=== PATIENT | female | born 1935 | race Caucasian/White ===

== ENCOUNTER 2020-12-17 11:06 | Outpatient (REF) | payer MEDICARE, SELFPAY ==
[2020-12-17 14:00] LABS: MANUAL DIFF FLAG NO
[2020-12-17 14:06] LABS: Basophils Percent Auto 0.4 % (0-2); Eosinophils Absolute Auto 0.1 X10*3/uL (0.0-0.4); Hematocrit 42.3 % (37-47); Hemoglobin 13.7 g/dl (12.0-16.0); Imm Gran Abs Auto 0.02 X10*3/uL (0.00-0.03); Imm Gran Pct Auto 0.4 % (0.0-0.4); Lymphocytes Absolute Auto 1.1 X10*3/uL (1.2-4.9); Lymphocytes Percent Auto 21.6 % (20-40); Mean Corpuscular HGB Conc 32.4 g/dl (31.0-35.0); Mean Corpuscular Hemoglobin 30.9 pg (27.0-33.0); Mean Corpuscular Volume 95.5 fL (80-98); Mean Platelet Volume 11.9 fL (9.4-12.3); Monocytes Absolute Auto 0.5 X10*3/uL (0.1-1.2); Monocytes Percent Auto 8.9 % (2-11); Neutrophils Absolute Auto 3.5 X10*3/uL (2.0-8.3); Neutrophils Percent Auto 67.7 % (45-73); Platelet Count 240 X10*3/uL (160-400); Red Blood Count 4.43 X10*6/uL (4.20-5.50); Red Cell Distribution Width 13.5 % (11.0-16.0); White Blood Count 5.2 X10*3/uL (4.8-10.8)
[2020-12-17 14:23] LABS: Alanine Aminotransferase 17 U/L (0-31); Alkaline Phosphatase 76 U/L (39-117); Anion Gap 17 (12-20); Aspartate Amino Transferase 21 U/L (5-31); Bilirubin Total 0.6 mg/dL (0.0-1.0); Blood Urea Nitrogen 18 mg/dL (9-16); Calcium 10.2 mg/dL (8.4-10.2); Carbon Dioxide 22 mmol/L (22-29); Chloride 102 mmol/L (96-108); Cholesterol 155 mg/dL; Estimated Average Glucose 157 mg/dL; Estimated Glomerular Filt Rate 57; Glucose Fasting 205 mg/dL (60-99); HDL Cholesterol 53 mg/dL; Hemoglobin A1c % 7.1 %; LDL Cholesterol Calculated 82 mg/dl; Potassium 4.5 mmol/L (3.3-5.1); Sodium 136 mmol/L (135-145); Total Protein 6.6 g/dL (6.5-8.0); Triglycerides 104 mg/dL
[2020-12-17 14:42] LABS: Uric Acid 4.8 mg/dL (2.4-5.7)
[2020-12-17 14:49] LABS: Vitamin B12 450 pg/mL (200-900)
[2020-12-17 14:50] LABS: Creatinine Urine 184.02 mg/dL; Microalbum/Creatinine Ratio Ur 21.1 ug/mg cr
== END 2020-12-17 11:07 | disposition home or self-care (01) ==
LOC: HO.10HDL 11:06
PROVIDERS: Visit Provider Internal Medicine
DX: Z00.00 Encounter for general adult medical examination without abnormal findings (principal); E11.9 Type 2 diabetes mellitus without complications; E78.00 Pure hypercholesterolemia, unspecified; I10 Essential (primary) hypertension; M10.9 Gout, unspecified
CPT/HCPCS: 36415; 80053; 80061; 82043; 82607; 83036; 84550; 85025

== ENCOUNTER 2021-08-22 07:47 | Outpatient (REF) | payer MEDICARE, SELFPAY ==
--- NOTE | 2021-08-25 13:56 | MHC.AU.ANO ---
Adult Audiological Evaluation Date of Visit: 08/22/21 Hotel Operation Manager Used: Not Applicable Reason for Appointment: Audiologic evaluation due to sudden onset of bilateral tinnitus. Yolanda reports the ear noises sound like bees buzzing and she notices it mostly at night when trying to sleep or in a quiet environment. She does not report a change in hearing. Does patient feel they have a hearing loss?: No Has hearing been tested previously?: No Hearing Handicap Inventory: HHIE SCORE: 0 Based on HHIE score, patient has: No perceived hearing handicap Ear History: Bothersome Tinnitus/Ringing/Noises in Ears: Both Ears Ear used on the phone: Left Ear History of occupational noise exposure?: No History: No Medical History: Medical History: Diabetes, High Blood Pressure Medication List: Metformin, Famotidine, Glipizide, Meloxicam, Losartan/HCTZ, Tylenol, Calcium Otoscopy: Right Ear: Mostly occluding cerumen Left Ear: Mostly occluding cerumen Tympanometry: Tympanometry performed due to: To assess integrity of the middle ear system Right Ear: Hypercompliant Middle Ear System (Type Ad) Left Ear: Normal Middle Ear System (Type A) Otoacoustic Emissions Did not test due to the mostly occluding cerumen Hearing Evaluation: Transducer(s) Used: Insert Earphones Bone Conduction Method: Conventional Audiometry Stimuli Used: Pure Tones Right Ear: Description of Hearing: Normal hearing thresholds 250-3000 Hz, dropping to a severe high frequency sensorineural hearing loss Left Ear: Description of Hearing: Normal hearing levels 250-3000 Hz, dropping to a moderately-severe high frequency sensorineural hearing loss Speech Recognition Threshold (SRT): Method Used: Monitored Live Voice Stimuli Used: Spondee Words Right Ear: 15 dB HL Left Ear: 15 dB HL Word Discrimination: Method: Recorded Lists Word Lists Used: NU-6 Right Ear: 92% at 60 dB HL Left Ear: 92% at 60 dB HL Recommendations: -Follow-up with physician for cerumen removal. -Discussed the theories of tinnitus, how ear noises may increase with increasing high frequency hearing loss as well as with stress and fatigue, and management strategies. Also discussed if the ear noises are bothersome and interfering with sleep or daily activities, to use a pleasant low level background noise to help mask the tinnitus. -Talked about how hearing aids may help mask the tinnitus during the day, but hearing aids are not worn at night when the tinnitus is most noticeable. Patient does not feel they are ready for amplification at this time. - Audiological re-evaluation in one year. Will send a reminder card. Diagnosis: Primary Diagnosis: H93.13 Tinnitus, Bilateral Secondary Diagnosis: H90.3 Bilateral Sensorineural Hearing Loss Services Performed: Comprehensive Audiological Evaluation (CPT 43964) Tympanometry (CPT 54301) Signature: Provider: Nitin Aranda, CCC-A
== END 2021-08-22 07:48 | disposition home or self-care (01) ==
LOC: HO.SH 07:47
PROVIDERS: Visit Provider Internal Medicine
DX: Z01.118 Encounter for examination of ears and hearing with other abnormal findings (principal); H90.3 Sensorineural hearing loss, bilateral; H93.13 Tinnitus, bilateral
CPT/HCPCS: 92557; 92567

== ENCOUNTER 2022-01-08 13:15 | Outpatient (REF) | payer MEDICARE, SELFPAY | END 2022-01-08 13:16 | disposition home or self-care (01) | LOC: HO.10HDLNP 13:15 | PROVIDERS: Visit Provider Internal Medicine | DX: E11.65 Type 2 diabetes mellitus with hyperglycemia (principal); E11.22 Type 2 diabetes mellitus with diabetic chronic kidney disease; N18.9 Chronic kidney disease, unspecified; R31.29 Other microscopic hematuria; S11.90XS Unspecified open wound of unspecified part of neck, sequela | CPT/HCPCS: 87086; 87088; 87186 ==

== ENCOUNTER 2024-03-12 04:08 | Emergency (ER) | payer MEDICARE, SELFPAY ==
[2024-03-12] VITALS (14 sets, daily range): BP systolic 126–175; BP diastolic 42–98; PULSE 60–77; RESP 10–16; TEMP 36.4–37.1; O2SAT 96–99; BMI 28.0
--- NOTE | 2024-03-12 | ECG_ITS ---
Test Reason : FALL Blood Pressure : / mmHG Vent. Rate : 061 BPM Atrial Rate : 061 BPM P-R Int : 162 ms QRS Dur : 070 ms QT Int : 406 ms P-R-T Axes : 087 009 017 degrees QTc Int : 408 ms Normal sinus rhythm Normal ECG No previous ECGs available Referred By: Generic ED Physician Electronically Signed By:
--- NOTE | ~2024-03-12 | CT_ITS ---
EXAMINATION: CT HEAD WITHOUT CONTRAST CT CERVICAL SPINE WITHOUT CONTRAST CLINICAL INFORMATION: Fall. Pain. COMPARISON: None available. TECHNIQUE: Contiguous axial imaging was performed from the skull base to vertex without intravenous administration of contrast. This CT examination was performed using dose optimization techniques as appropriate, variously including the following: *Automated exposure control *Adjustment of mA and/or kV according to patient size (this includes techniques or standardized protocols for targeted exams where dose is matched to indication/reason for exam; i.e. extremities or head) *Use of iterative reconstruction technique DLP: 1079 mGy-cm FINDINGS: There is mild cerebral volume loss with prominence of the lateral and third ventricles. The cortical sulci are widened appropriately. The fourth ventricle and basal cisterns are normally outlined. There is mild bilateral periventricular and central white matter diminished attenuation. There is an old left basal ganglial lacunar infarct. There is a small amount of right frontal subarachnoid hemorrhage. There is also some apparent extra-axial hemorrhage along the frontal interhemispheric fissure. There is no significant mass effect or midline shift. Calvarium/scalp: Calvarium is intact. There is right frontotemporal scalp soft tissue swelling. Maxillofacial sinuses and mastoids: There is a small sphenoid sinus opacity. The remaining visualized maxillofacial sinuses and mastoids are clear. Cervical spine: The alignment is normal. There is diffuse moderate cervical disc degenerative change with loss of disc space, endplate change and posterior osteophytes associated with diffuse mlnz-ty-jymevunk facet osteoarthritic hypertrophic change with multilevel mild spinal canal and mild to moderate neuroforaminal narrowing. The bony structures are osteopenic. There is no evidence for fracture. The soft tissues are unremarkable. A large right thyroid goiter is noted. The visualized upper lung pacheco are clear. CT/CT cervical spine wo IV con IMPRESSION: 1. Small amount of right frontal subarachnoid hemorrhage and small amount of extra-axial hemorrhage along the frontal interhemispheric fissure. 2. Mild cerebral volume loss and chronic small vessel ischemic changes. 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 3. Right frontotemporal scalp soft tissue swelling. 4. No evidence for acute cervical spine traumatic injury. 5. Diffuse cervical spondylosis and facet osteoarthritic changes. 6. Large right thyroid goiter. Findings were discussed with HAKEEM Rao at approximately 6:40 AM March 12, 2024. Electronically signed by: Moises Powers MD 03/12/2024 06:41 AM [facility]
--- NOTE | ~2024-03-12 | CT_ITS ---
EXAMINATION: CT HEAD WITHOUT CONTRAST CT CERVICAL SPINE WITHOUT CONTRAST CLINICAL INFORMATION: Fall. Pain. COMPARISON: None available. TECHNIQUE: Contiguous axial imaging was performed from the skull base to vertex without intravenous administration of contrast. This CT examination was performed using dose optimization techniques as appropriate, variously including the following: *Automated exposure control *Adjustment of mA and/or kV according to patient size (this includes techniques or standardized protocols for targeted exams where dose is matched to indication/reason for exam; i.e. extremities or head) *Use of iterative reconstruction technique DLP: 1079 mGy-cm FINDINGS: There is mild cerebral volume loss with prominence of the lateral and third ventricles. The cortical sulci are widened appropriately. The fourth ventricle and basal cisterns are normally outlined. There is mild bilateral periventricular and central white matter diminished attenuation. There is an old left basal ganglial lacunar infarct. There is a small amount of right frontal subarachnoid hemorrhage. There is also some apparent extra-axial hemorrhage along the frontal interhemispheric fissure. There is no significant mass effect or midline shift. Calvarium/scalp: Calvarium is intact. There is right frontotemporal scalp soft tissue swelling. Maxillofacial sinuses and mastoids: There is a small sphenoid sinus opacity. The remaining visualized maxillofacial sinuses and mastoids are clear. Cervical spine: The alignment is normal. There is diffuse moderate cervical disc degenerative change with loss of disc space, endplate change and posterior osteophytes associated with diffuse fkyj-kc-vfwwfwjq facet osteoarthritic hypertrophic change with multilevel mild spinal canal and mild to moderate neuroforaminal narrowing. The bony structures are osteopenic. There is no evidence for fracture. The soft tissues are unremarkable. A large right thyroid goiter is noted. The visualized upper lung pacheco are clear. CT/CT head/brain wo IV con IMPRESSION: 1. Small amount of right frontal subarachnoid hemorrhage and small amount of extra-axial hemorrhage along the frontal interhemispheric fissure. 2. Mild cerebral volume loss and chronic small vessel ischemic changes. 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 3. Right frontotemporal scalp soft tissue swelling. 4. No evidence for acute cervical spine traumatic injury. 5. Diffuse cervical spondylosis and facet osteoarthritic changes. 6. Large right thyroid goiter. Findings were discussed with HAKEEM Rao at approximately 6:40 AM March 12, 2024. Electronically signed by: Moises Powers MD 03/12/2024 06:41 AM [facility]
--- NOTE | ~2024-03-12 | XR_ITS ---
EXAMINATION: XR HIP, LEFT CLINICAL INFORMATION: Fall. COMPARISON: None available. TECHNIQUE: AP view of the pelvis as well as AP and frog-leg lateral views of the left hip. FINDINGS: No acute fracture or dislocation. Severe left hip joint space narrowing with bony remodeling, large marginal osteophytes, and femoral neck buttressing. More moderate right hip joint space narrowing with marginal osteophytes. No osseous erosion. No evidence of femoral head avascular necrosis. XR/XR hip LT w PEL1V IMPRESSION: 1. No acute fracture or dislocation. 2. 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 3. Moderate right hip osteoarthritis. Electronically signed by: Adan Luna MD 03/12/2024 08:45 AM [facility]
--- NOTE | 2024-03-12 05:14 | MHC.EDTECH ---
Patient BIBA,changed into hospital attire,vitals taken,placed pt on the monitoring coordinator,EKG completed per order and signed by provider,patient has a large bump to forehead (RT side),bleeding is controlled,cleansed wound with saline/peroxide,pt tolerated well,
--- NOTE | 2024-03-12 05:46 | PC.NURSE ---
Spoke with nurse at [facility] who reports that he heard a thud around 3:20am and found patient on the floor, on her right side, with blood coming from the right side of her head. Nurse stated that she was in her bed sleeping prior to the fall. Baseline dementia. Pt's responsiveness has improved and she is now responding to verbal stimuli, able to move extremities. Right side of forehead cleansed, ?puncture injury. CT scan obtained, awaiting results. Gauze bandage applied to head. Dr. Eliezer garnett.
--- NOTE | 2024-03-12 06:31 | ED_ITS ---
HPI - Fall General Chief Complaint: Fall Stated Complaint: unwit fall, +HS, bleeding & swelling on forehead Time Seen by Provider: 03/12/24 06:24 Source: EMS Limitations: no limitations History of Present Illness ED Provider: Jaclyn Tipton PA-C HPI Narrative: 88 y/o female with history of dementia, DM2, SVT, HTN who presents to the ER from [facility] via EMS for evaluation of an unwitnessed fall. Per report around 03:00 staff at the facility heard a ?thud? and patient was found on her right side on the ground. There was no loss of consciousness. She had hit the front right side of her head. There was a large hematoma and some bleeding. She was unable to follow directions and was not responding appropriately. She was brought to the ER for further evaluation. On arrival to the ER patient is awake, alert, difficult to assess with incoherent speech. MD complaint: fall Onset (ago): hour(s) Fall witnessed: no Place fall occurred: long term/SNF Loss of consciousness: unsure Prolonged down time: no Location of injury: head and face Related Data Allergies Allergy/AdvReac Type Severity Reaction Status Date / Time No Known Allergies Allergy Verified 03/12/24 04:24 Review of Systems 2 Review of Systems: Yes Unobtainable due to mental condition and Unobtainable due to mental status PMFSH Social History Social History Advance Directives: No Advance Directives Information Provided: Yes Physical Exam 2 Vital Signs: Vital Signs: Last Vital Signs Temp 97.8 F 03/12/24 06:20 Pulse 65 03/12/24 06:44 Resp 16 03/12/24 06:44 BP 175/52 H 03/12/24 06:44 Pulse Ox 98 03/12/24 06:44 O2 Del Method Room Air 03/12/24 06:44 BMI result Body Mass Index 28.0 Appearance: Alert elderly female with trauma to the right forehead, laying on her left side Head: large hematoma on the right forehead with small amount of oozing. Eyes: Pupils equal, round and reactive to light. ENT: Pharynx normal. No tonsillar swelling or exudate. Neck: Normal inspection. Neck supple. no stepoff deformity CVS: Normal heart rate and rhythm. Pulses normal. Respiratory: No respiratory distress. Breath sounds normal. Abdomen: Soft and nontender. +BS x4. no ecchymosis on abd wall or flank Skin: Skin warm and dry. Normal skin color. Normal skin turgor. No rashes. Extremities: LE in flexion, tender right hip. right shoulder with a small amount of ecchymosis, pain with ROM. no gross deformity Neuro/psych: awake, alert, incoherent speech, follows commands on the LUE only, groaning. Course Reevaluation(s) Reevaluation #1: Received call from [facility] patient has a right frontal subarachnoid hemorrhage that is small. C-spine is normal. There is no midline shift. Nursing is reporting that patient's mentation has declined recently, more difficult to understand, speech is worse Time: 06:37 Medical Decision Making Medical Decision Making MDM Narrative: 88-year-old female with a history of diabetes, dementia, SVT, HTN who presents to the ER for evaluation of an unwitnessed fall. She presents altered, slurred speech, does not follow commands. She is awake and alert. GCS is 10-11. She is protecting her airway. Per nursing mental status has declined in the last hour. She has worsening right facial droop and worsening speech. Unable to participate in NIH scale. Received critical result from [facility] that she has a small frontal SAH on the right without midline shift. [facility] called for transfer to trauma unit. Accepted by Dr. Alejo as trauma consult called and updated family Jeanie HCR/POA about SAH and transfer to [facility]. SBP 178 - given 10 mg IV hydralazine for goal sBP <160 Differential Diagnosis Differential Diagnoses: The differential diagnosis associated with the presentation includes traumatic SAH, stroke, hip fracture, shoulder fracture Admission/Observation Consideration of admission/observation: Escalation of care including admission/observation considered Consult Healthcare Provider Management of the patient was discussed with: Business Job Titles Dr. Abernathy trauma at [facility] Lab Data MDM Lab Attestation statement: I reviewed the patient's lab results. hyperglycemia, normal renal function 03/12/24 06:35 12 06:35 Labs: Lab Results 03/12/24 03/12/24 Range/Units 06:24 06:35 WBC 10.2 (4.8-10.8) X10*3/uL RBC 4.13 L (4.20-5.50) X10*6/uL Hgb 12.4 (12.0-16.0) g/dl Hct 38.3 (37.0-47.0) % MCV 92.7 (80.0-98.0) fL MCH 30.0 (27.0-33.0) pg MCHC 32.4 (31.0-35.0) g/dl RDW 13.4 (11.0-16.0) % Plt Count 178 (160-400) X10*3/uL MPV 11.8 (9.4-12.3) fL Immature Gran % (Auto) 0.8 H (0.0-0.4) % Neut % (Auto) 78.2 H (45-73) % Lymph % (Auto) 10.6 L (20-40) % Stark % (Auto) 9.6 (2-11) % Eos % (Auto) 0.5 (0-4) % Baso % (Auto) 0.3 (0-2) % Lymph # (Auto) 1.1 L (1.2-4.9) X10*3/uL Stark # (Auto) 1.0 (0.1-1.2) X10*3/uL Eos # (Auto) 0.1 (0.0-0.4) X10*3/uL Baso # (Auto) 0.0 (0.0-0.2) X10*3/uL Abs Immat Gran (auto) 0.08 H (0.00-0.03) X10*3/uL Absolute Neuts (auto) 8.0 (2.0-8.3) x10*3/uL Absolute Nucleated RBC 0.000 (0.0-0.012) X10*3/uL Nucleated RBC % (auto) 0.0 (0.0-0.2) /100WBC PT 10.9 (10.9-12.4) SEC INR 0.9 (0.9-1.1) Sodium 139 (135-145) mmol/L Potassium 4.9 (3.3-5.1) mmol/L Chloride 108 (96-108) mmol/L Carbon Dioxide 21 L (22-29) mmol/L Anion Gap 15 (12-20) BUN 24 H (9-16) mg/dL Creatinine 0.84 (0.5-1.4) mg/dL Estim Creat Clear Calc 41.4 Estimated GFR > 60 Random Glucose 213 H (60-115) mg/dL Calcium 9.3 D (8.4-10.2) mg/dL Total Bilirubin 0.5 (0.0-1.0) mg/dL AST 28 (5-31) U/L ALT 6 (0-31) U/L Alkaline Phosphatase 75 (39-117) U/L Troponin I High Sens 4.1 (<3.5-17.0) ng/L Total Protein 6.4 L (6.5-8.0) g/dL Albumin 3.3 L (3.5-5.0) g/dL Urine Color Yellow Urine Appearance Clear Urine pH 5.5 (5.0-9.0) Ur Specific Winnie 1.015 (1.005-1.025) Urine Protein Negative (Neg-Trace) mg/dL Urine Glucose (UA) Negative (Negative) mg/dL Urine Ketones Negative (Negative) mg/dL Urine Blood Negative (Negative) Urine Nitrite Negative (Negative) Ur Leukocyte Esterase Negative (Negative) Independent Interpretation I performed an independent interpretation of an: CT Scan Interpretation: SAH on the right Radiology Impression Discussion of test interpretation with radiology: I have reviewed the radiologist's reading. Radiologist Impression: EXAMINATION: CT HEAD WITHOUT CONTRAST CT CERVICAL SPINE WITHOUT CONTRAST CLINICAL INFORMATION: Fall. Pain. COMPARISON: None available. TECHNIQUE: Contiguous axial imaging was performed from the skull base to vertex without intravenous administration of contrast. This CT examination was performed using dose optimization techniques as appropriate, variously including the following: *Automated exposure control *Adjustment of mA and/or kV according to patient size (this includes techniques or standardized protocols for targeted exams where dose is matched to indication/reason for exam; i.e. extremities or head) *Use of iterative reconstruction technique DLP: 1079 mGy-cm FINDINGS: There is mild cerebral volume loss with prominence of the lateral and third ventricles. The cortical sulci are widened appropriately. The fourth ventricle and basal cisterns are normally outlined. There is mild bilateral periventricular and central white matter diminished attenuation. There is an old left basal ganglial lacunar infarct. There is a small amount of right frontal subarachnoid hemorrhage. There is also some apparent extra-axial hemorrhage along the frontal interhemispheric fissure. There is no significant mass effect or midline shift. Calvarium/scalp: Calvarium is intact. There is right frontotemporal scalp soft tissue swelling. Maxillofacial sinuses and mastoids: There is a small sphenoid sinus opacity. The remaining visualized maxillofacial sinuses and mastoids are clear. Cervical spine: The alignment is normal. There is diffuse moderate cervical disc degenerative change with loss of disc space, endplate change and posterior osteophytes associated with diffuse cuqi-lx-exuvajlw facet osteoarthritic hypertrophic change with multilevel mild spinal canal and mild to moderate neuroforaminal narrowing. The bony structures are osteopenic. There is no evidence for fracture. The soft tissues are unremarkable. A large right thyroid goiter is noted. The visualized upper lung pacheco are clear. CT/CT head/brain wo IV con IMPRESSION: 1. Small amount of right frontal subarachnoid hemorrhage and small amount of extra-axial hemorrhage along the frontal interhemispheric fissure. 2. Mild cerebral volume loss and chronic small vessel ischemic changes. 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 3. Right frontotemporal scalp soft tissue swelling. 4. No evidence for acute cervical spine traumatic injury. 5. Diffuse cervical spondylosis and facet osteoarthritic changes. 6. Large right thyroid goiter. Independent Historian Clinical information obtained from an independent historian. History obtained from or confirmed by: EMS Prescription Management I considered prescription management with: Pain Medication and Other (antihypertensive) Chronic Conditions Patient?s care impacted by: Diabetes and Other (dementia) Critical Care Time Critical Care Time Critical Care Time: Yes Total Critical Care Time: 44 Attestation: I have personally provided critical care time exclusive of time spent on separately billable procedures. Time includes review of lab data, radiology results, discussion with consultants, and monitoring for potential decompensation. Intervention performed as documented. Discharge Plan Discharge Clinical Impression: Subarachnoid hemorrhage Patient Disposition: [facility] Transfer Details: [facility] Print Language: Malagasy
--- NOTE | 2024-03-12 06:38 | MHC.EDTECH ---
Assisted Olivia MCKNIGHT with straight cath,output 250MLS of yellow urine,sample collected and sent to lab,labs drawn and sent to lab,vitals taken BP is elevated RN made aware
[2024-03-12 06:39] LABS: Appearance Urine Clear; Color Urine Yellow; Glucose Urine UA Negative (Negative); Leukocyte Esterase Urine Negative (Negative); Nitrite Urine Negative (Negative); PH 5.5 (5.0-9.0); Specific Gravity - Urine 1.015 (1.005-1.025); Urine Blood Negative (Negative); Urine Ketones Negative (Negative); Urine Protein Negative (Neg-Trace)
[2024-03-12 06:39] LABS: MANUAL DIFF FLAG NO
[2024-03-12 06:46] LABS: Basophils Percent Auto 0.3 % (0-2); Eosinophils Absolute Auto 0.1 X10*3/uL (0.0-0.4); Eosinophils Percent Auto 0.5 % (0-4); Hematocrit 38.3 % (37.0-47.0); Hemoglobin 12.4 g/dl (12.0-16.0); Imm Gran Abs Auto 0.08 X10*3/uL (0.00-0.03); Imm Gran Pct Auto 0.8 % (0.0-0.4); Lymphocytes Absolute Auto 1.1 X10*3/uL (1.2-4.9); Lymphocytes Percent Auto 10.6 % (20-40); Mean Corpuscular HGB Conc 32.4 g/dl (31.0-35.0); Mean Corpuscular Volume 92.7 fL (80.0-98.0); Mean Platelet Volume 11.8 fL (9.4-12.3); Monocytes Percent Auto 9.6 % (2-11); Neutrophils Percent Auto 78.2 % (45-73); Platelet Count 178 X10*3/uL (160-400); Red Blood Count 4.13 X10*6/uL (4.20-5.50); Red Cell Distribution Width 13.4 % (11.0-16.0); White Blood Count 10.2 X10*3/uL (4.8-10.8)
--- NOTE | 2024-03-12 06:49 | MHC.EDTECH ---
Belongings list completed,copy placed in chart
[2024-03-12 06:54] LABS: Alanine Aminotransferase 6 U/L (0-31); Albumin Level 3.3 g/dL (3.5-5.0); Alkaline Phosphatase 75 U/L (39-117); Anion Gap 15 (12-20); Aspartate Amino Transferase 28 U/L (5-31); Bilirubin Total 0.5 mg/dL (0.0-1.0); Blood Urea Nitrogen 24 mg/dL (9-16); Calcium 9.3 mg/dL (8.4-10.2); Carbon Dioxide 21 mmol/L (22-29); Chloride 108 mmol/L (96-108); Creatinine Clr Calc Pharmacy 41.4; Estimated Glomerular Filt Rate > 60; Glucose Random 213 mg/dL (60-115); Potassium 4.9 mmol/L (3.3-5.1); Sodium 139 mmol/L (135-145); Total Protein 6.4 g/dL (6.5-8.0)
[2024-03-12 06:59] LABS: INTERNATIONAL NORM RATIO 0.9 (0.9-1.1); Prothrombin Time 10.9 SEC (10.9-12.4)
[2024-03-12 07:01] LABS: Troponin-I High Sensitivity 4.1 ng/L (<3.5-17.0)
[2024-03-12] MEDS: hydrALAZINE HCl 20 MG/ML VIAL 10 MG IVPUSH (07:25)
--- NOTE | 2024-03-12 07:55 | PC.NURSE ---
Care of Pt assumed at change of shift. Per shift report, Pt is being transferred to [facility]. Pt hypertensive this AM, IV hydralazine 10mg given per JUN. BP noted to come down nicely. Pt restless at times, pulling at BP cuff and hospital gown. [facility] arrives for Pt transport. Report given to EMS. Care of Pt relinquished to [facility]. Call placed to [facility] and spoke with ROXANNA White. RN to RN report given for transfer. Christopher given the opportunity for questions and all questions answered to satisfaction. Christopher aware Pt is leaving facility now. Pt has left the [facility] at this time.
== END 2024-03-12 08:01 | disposition short-term general hospital (02) ==
PROVIDERS: Physician Assistant; Emergency Provider Emergency Medicine; PCP Internal Medicine
DX: S06.6X0A Traumatic subarachnoid hemorrhage without loss of consciousness, initial encounter (principal); M25.552 Pain in left hip; M54.2 Cervicalgia; R40.2420 Glasgow coma scale score 9-12, unspecified time; R51.9 Headache, unspecified; R47.81 Slurred speech; R10.2 Pelvic and perineal pain; R29.810 Facial weakness; I10 Essential (primary) hypertension; W18.30XA Fall on same level, unspecified, initial encounter; Y93.89 Activity, other specified; Y92.098 Other place in other non-institutional residence as the place of occurrence of the external cause; Y99.8 Other external cause status; Z79.899 Other long term (current) drug therapy
CPT/HCPCS: 36415; 70450; 72125; 73502; 80053; 81003; 84484; 85025; 85610; 93005; 96374; 99285; J0360

== ENCOUNTER 2024-04-03 02:08 | Emergency (ER) | payer MEDICARE, SELFPAY ==
[2024-04-03] VITALS (8 sets, daily range): BP systolic 127–150; BP diastolic 51–65; PULSE 69–92; RESP 13–20; TEMP 36.3–36.9; O2SAT 94–100; BMI 25.3
--- NOTE | ~2024-04-03 | CT_ITS ---
EXAMINATION: CT PELVIS WITHOUT CONTRAST CLINICAL INFORMATION: Fall. Pain. COMPARISON: None available. TECHNIQUE: Helical scanning was performed with submillimeter collimation through the pelvis. Sagittal and coronal multiplanar 2-D reconstructions were obtained. This CT examination was performed using dose optimization techniques as appropriate, variously including the following: *Automated exposure control *Adjustment of mA and/or kV according to patient size (this includes techniques or standardized protocols for targeted exams where dose is matched to indication/reason for exam; i.e. extremities or head) *Use of iterative reconstruction technique DLP: 393 mGy-cm FINDINGS: PELVIS: There is no pelvic mass. The urinary bladder is normal in appearance. 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 There is colonic diverticula. OSSEOUS STRUCTURES: There is lower lumbar disc and degenerative change. There is mild to moderate bilateral hip degenerative change. There is no acute fracture. CT/CT pelvis wo IV con IMPRESSION: 1. No acute fracture. 2. Degenerative changes. 3. Pelvic floor prolapse. Electronically signed by: Moises Powers MD 04/03/2024 04:44 AM [facility]
--- NOTE | ~2024-04-03 | CT_ITS ---
EXAMINATION: CT HEAD WITHOUT CONTRAST CT CERVICAL SPINE WITHOUT CONTRAST CLINICAL INFORMATION: Unwitnessed fall. COMPARISON: March 12, 2024 TECHNIQUE: Contiguous axial imaging was performed through the head and cervical spine without intravenous administration of contrast. Sagittal and coronal reformatted images also obtained. This CT examination was performed using dose optimization techniques as appropriate, variously including the following: *Automated exposure control *Adjustment of mA and/or kV according to patient size (this includes techniques or standardized protocols for targeted exams where dose is matched to indication/reason for exam; i.e. extremities or head) *Use of iterative reconstruction technique DLP: 898 mGy-cm FINDINGS: There is cerebral volume loss with prominence of the lateral and the third ventricles. The cortical sulci are widened appropriately. The fourth ventricle and basal cisterns are normally outlined. There is mild to moderate bilateral periventricular and central white matter diminished attenuation. There are bilateral basal ganglia lacunar infarcts. There is no acute territorial defect, or midline shift. There is a small amount of right frontal subarachnoid hemorrhage. Calvarium/scalp: Intact. Maxillofacial sinuses and mastoids: There is a small left sphenoid sinus opacity. Cervical spine: The alignment is normal. There is diffuse moderate cervical disc degenerative change with loss of disc space, endplate change and posterior osteophytes associated with diffuse mild to moderate facet osteoarthritic hypertrophic change with multilevel mild spinal canal and multilevel mild to moderate neuroforaminal narrowing. The bony structures are osteopenic. No fractures seen. The soft tissues are unremarkable. The visualized upper lung pacheco are clear. Partially imaged right thyroid goiter measuring up to [address]/CT cervical spine wo IV con IMPRESSION: 1. Small right frontal subarachnoid hemorrhage, improved compared to prior. 2. Bilateral basal ganglia lacunar infarcts. 3. Moderate cerebral volume loss with chronic small vessel ischemic changes. 4. No acute cervical spine injury seen. Findings were discussed with Dr. Verito Martins at approximately 0 4:10 AM April 03, 2024. Electronically signed by: Moises Powers MD 04/03/2024 04:12 AM [facility]
--- NOTE | ~2024-04-03 | CT_ITS ---
EXAMINATION: CT HEAD WITHOUT CONTRAST CLINICAL INFORMATION: r/o worsening SAH COMPARISON: CT dated March 12, 2024. TECHNIQUE: Contiguous axial imaging was performed from the skull base to vertex without intravenous administration of contrast. This CT examination was performed using dose optimization techniques as appropriate, variously including the following: *Automated exposure control *Adjustment of mA and/or kV according to patient size (this includes techniques or standardized protocols for targeted exams where dose is matched to indication/reason for exam; i.e. extremities or head) *Use of iterative reconstruction technique DLP: 627 mGy-cm FINDINGS: Small volume of extra-axial hyperdensity within the right frontal cerebral sulci. No intraparenchymal hemorrhage mass effect midline shift hydrocephalus or herniation. Stable appearance of the brain. No other change. CT/CT head/brain wo IV con IMPRESSION: Subarachnoid hemorrhage, small volume right frontal convexity. Stable. Electronically signed by: Hira Diaz MD 04/03/2024 02:14 PM [facility]
--- NOTE | 2024-04-03 02:35 | MHC.EDTECH ---
pt dian from [facility] for a fall. pt in C-collar. vital signs taken and given to RN. labs drawn per MD order and sent to the lab.
[2024-04-03 02:38] LABS: Hematocrit 36.7 % (37.0-47.0); Hemoglobin 11.8 g/dl (12.0-16.0); Mean Corpuscular HGB Conc 32.2 g/dl (31.0-35.0); Mean Corpuscular Hemoglobin 29.6 pg (27.0-33.0); Mean Platelet Volume 11.2 fL (9.4-12.3); Platelet Count 175 X10*3/uL (160-400); Red Blood Count 3.99 X10*6/uL (4.20-5.50); Red Cell Distribution Width 13.1 % (11.0-16.0); White Blood Count 6.3 X10*3/uL (4.8-10.8)
[2024-04-03 02:43] LABS: Prothrombin Time 11.8 SEC (10.9-12.4)
[2024-04-03 02:55] LABS: Alanine Aminotransferase 12 U/L (0-31); Alkaline Phosphatase 78 U/L (39-117); Anion Gap 12 (12-20); Aspartate Amino Transferase 19 U/L (5-31); Bilirubin Total 0.4 mg/dL (0.0-1.0); Blood Urea Nitrogen 20 mg/dL (9-16); Calcium 8.8 mg/dL (8.4-10.2); Carbon Dioxide 27 mmol/L (22-29); Chloride 107 mmol/L (96-108); Creatinine Clr Calc Pharmacy 47.1; Estimated Glomerular Filt Rate > 60; Glucose Random 132 mg/dL (60-115); Potassium 4.5 mmol/L (3.3-5.1); Sodium 141 mmol/L (135-145); Total Protein 5.8 g/dL (6.5-8.0)
[2024-04-03 03:01] LABS: Troponin-I High Sensitivity 7.3 ng/L (<3.5-17.0)
--- NOTE | 2024-04-03 05:41 | ED.FALL ---
HPI - Fall General Chief Complaint: Fall Stated Complaint: SNF unwit fall hip ? +hip binder +collar,-thinners Time Seen by Provider: 04/03/24 02:47 Source: patient and EMS Mode of arrival: EMS Limitations: other (Dementia) History of Present Illness ED Provider: Dr. Verito Martins HPI Narrative: [facility]. According to the staff, patient had an unwitnessed fall. Seems that patient fell on her right side, seems to be complaining of right hip pain. At baseline, it is reported that patient is pleasantly confused. At this time, patient is at baseline, alert and oriented, reporting no pain. Patient is not on blood thinners Of note, earlier this month on 03/12/2024, patient had a fall and had a subarachnoid bleed. Related Data Allergies Allergy/AdvReac Type Severity Reaction Status Date / Time No Known Allergies Allergy Verified 04/03/24 02:31 Review of Systems Review of Systems: Constitutional : No Weight loss, No Fever, No Chills, No Night Sweats, No Fatigue, No Malaise ENT/Mouth : No Hearing loss, No Ear Pain, No Nasal Congestion, No Sinus Pain, No Hoarseness, No sore throat, No Rhinorrhea, No Swallowing Difficulty Eyes: No Eye Pain, No Swelling, No Redness, No Foreign Body, No Discharge, No Vision Changes Cardiovascular : No Chest Pain, No SOB, No Dyspnea on Exertion, No Orthopnea, No Edema, No Palpitations Respiratory : No Cough, No Sputum, No Wheezing, No Smoke Exposure, No Dyspnea Gastrointestinal : No Nausea, No Vomiting, No Diarrhea, No Constipation, No abdominal Pain, No Hematochezia, No Melena Genitourinary : no irregular bleeding, No Dysuria, No Urinary Frequency, No Hematuria, No Urinary Incontinence, No Urgency, No Flank Pain, No Urinary Flow Changes, No Hesitancy Musculoskeletal : No joint pain, No Myalgias, No Joint Swelling Skin : No Skin Lesions, No rash Neuro : No Weakness, No Numbness, No Paresthesias, No Loss of Consciousness, No Dizziness, No Headache Psych : No Anxiety/Panic, No Depression, No SI/HI/AH/VH, No Social Issues, Heme/Lymph: No Bruising, No Bleeding,No Lymphadenopathy Endocrine : No Polyuria, No Polydipsia, No Temperature Intolerance PMF Past Medical History Medical History (Updated 04/03/24 @ 05:49 by Verito Martins MD) Diabetes Hypertension Dementia Social History Social History Unable to assess alcohol history related to: Unable to respond and Unknown Advance Directives: Yes Advance Directives on File: Yes Advance Directives Date on File: 03/13/24 Physical Exam Vital Signs: Vital Signs: BMI result Body Mass Index 25.3 Const: Other: Appearance: Alert. Oriented . No acute distress. Eyes: Pupils equal, round and reactive to light. ENT: Pharynx normal. Neck: On C-spine precautions, no palpable step-offs, no pain CVS: Normal heart rate and rhythm. Pulses normal. Normal S1 and S2 Respiratory: No respiratory distress. Breath sounds normal. No Wheezing. No rales Abdomen: Soft and nontender. No rigidity. No distention. Back: Pain to palpation in bilateral upper middle and lower back. No cervical/thoracic/lumbar spine tenderness or palpable step-offs Skin: Skin warm and dry. Normal skin color. Normal skin turgor. Extremities: No lower extremity edema. No Lacerations. No Rash Neuro: Cranial nerves 2-12 grossly intact, GCS 15, coherent Psych: calm, cooperative, normal affect Medical Decision Making Medical Decision Making MDM Narrative: Of note, patient had a brain bleed earlier this month, it is expected to see some kind of trace right frontal subarachnoid bleed -patient remains awake and alert, answering questions coherently, GCS 15 -CT scan does not show an acute fracture. -patient's CT scan to be repeated at 11:00 to ensure that the subarachnoid bleed is not worsening. Neuro checks Q 2 hours -urinalysis pending to rule out UTI Sign-out given to my colleague Dr. Vinson Differential Diagnosis Differential Diagnoses: The differential diagnosis associated with the presentation includes (UTI, mechanical fall, subarachnoid bleed, subdural hematoma, epidural hematoma) Admission/Observation Consideration of admission/observation: Escalation of care including admission/observation considered (Patient is under physician observation) Lab Data [facility] Lab Attestation statement: I reviewed the patient's lab results. 04/03/24 02:33 04/03/24 02:33 Labs: Lab Results 04/03/24 Range/Units 02:33 WBC 6.3 (4.8-10.8) X10*3/uL RBC 3.99 L (4.20-5.50) X10*6/uL Hgb 11.8 L (12.0-16.0) g/dl Hct 36.7 L (37.0-47.0) % MCV 92.0 (80.0-98.0) fL MCH 29.6 (27.0-33.0) pg MCHC 32.2 (31.0-35.0) g/dl RDW 13.1 (11.0-16.0) % Plt Count 175 (160-400) X10*3/uL MPV 11.2 (9.4-12.3) fL Absolute Nucleated RBC 0.000 (0.0-0.012) X10*3/uL Nucleated RBC % (auto) 0.0 (0.0-0.2) /100WBC PT 11.8 (10.9-12.4) SEC INR 1.0 (0.9-1.1) Sodium 141 (135-145) mmol/L Potassium 4.5 (3.3-5.1) mmol/L Chloride 107 (96-108) mmol/L Carbon Dioxide 27 (22-29) mmol/L Anion Gap 12 (12-20) BUN 20 H (9-16) mg/dL Creatinine 0.79 (0.5-1.4) mg/dL Estim Creat Clear Calc 47.1 Estimated GFR > 60 Random Glucose 132 H (60-115) mg/dL Calcium 8.8 (8.4-10.2) mg/dL Total Bilirubin 0.4 (0.0-1.0) mg/dL AST 19 (5-31) U/L ALT 12 (0-31) U/L Alkaline Phosphatase 78 (39-117) U/L Troponin I High Sens 7.3 D (<3.5-17.0) ng/L Total Protein 5.8 L (6.5-8.0) g/dL Albumin 3.0 L (3.5-5.0) g/dL Independent Interpretation I performed an independent interpretation of an: CT Scan Radiology Impression Discussion of test interpretation with radiology: I have reviewed the radiologist's reading. Radiologist Impression: There is cerebral volume loss with prominence of the lateral and the third ventricles. The cortical sulci are widened appropriately. The fourth ventricle and basal cisterns are normally outlined. There is mild to moderate bilateral periventricular and central white matter diminished attenuation. There are bilateral basal ganglia lacunar infarcts. There is no acute territorial defect, or midline shift. There is a small amount of right frontal subarachnoid hemorrhage. Calvarium/scalp: Intact. Maxillofacial sinuses and mastoids: There is a small left sphenoid sinus opacity. Cervical spine: The alignment is normal. There is diffuse moderate cervical disc degenerative change with loss of disc space, endplate change and posterior osteophytes associated with diffuse mild to moderate facet osteoarthritic hypertrophic change with multilevel mild spinal canal and multilevel mild to moderate neuroforaminal narrowing. The bony structures are osteopenic. No fractures seen. The soft tissues are unremarkable. The visualized upper lung pacheco are clear. Partially imaged right thyroid goiter measuring up to [address]/CT head/brain wo IV con IMPRESSION: 1. Small right frontal subarachnoid hemorrhage, improved compared to prior. 2. Bilateral basal ganglia lacunar infarcts. 3. Moderate cerebral volume loss with chronic small vessel ischemic changes. 4. No acute cervical spine injury seen. PELVIS: There is no pelvic mass. The urinary bladder is normal in appearance. 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 There is colonic diverticula. OSSEOUS STRUCTURES: There is lower lumbar disc and degenerative change. There is mild to moderate bilateral hip degenerative change. There is no acute fracture. Critical Care Time Critical Care Time Critical Care Time: Yes Total Critical Care Time: 45 Attestation: I have personally provided critical care time. Time includes review of lab data, radiology results, discussion with consultants, and monitoring for potential decompensation. Intervention performed as documented. Discharge Plan Discharge Clinical Impression: Fall Patient Disposition: Still a Patient Print Language: Citizen Of [place]
[2024-04-03 06:48] LABS: Appearance Urine Hazy; Color Urine Yellow; Glucose Urine UA Negative (Negative); Leukocyte Esterase Urine Moderate (2+) (Negative); Nitrite Urine Negative (Negative); PH 5.5 (5.0-9.0); Specific Gravity - Urine 1.015 (1.005-1.025); UMIC TRIGGER UACC YES; Urine Blood Negative (Negative); Urine Ketones Negative (Negative); Urine Protein Negative (Neg-Trace)
[2024-04-03 07:08] LABS: Bacteria Urine 3+ (None Seen); Hyaline Casts Urine 0-2 /LPF (0-2); RBC Urine 0-2 /HPF (0-2); UACC Culture Trigger YES; WBC Urine >50 /HPF (0-5)
--- NOTE | 2024-04-03 08:11 | PC.NURSE ---
patient resting quietly in bed, resp even and unlabored, patient state she has back pain 11/19, states it started this morning, patient is alert and oriented to self, time and situation, originally thought she was at [facility], patient told she is [place] [facility] pupils equal and reactive bilaterally. VSS
[2024-04-03] MEDS: cefTRIAXone sodium 1 GM VIAL IVPUSH (09:28)
--- NOTE | 2024-04-03 16:03 | MHC.EDTECH ---
Patient inc therefore patient changed and repositioned
--- NOTE | 2024-04-03 18:45 | MHC.EDTECH ---
Dinner given to patient
--- NOTE | 2024-04-03 19:05 | MHC.EDTECH ---
Patient inc therfore patient changed and repositioned
--- NOTE | 2024-04-03 19:44 | PC.NURSE ---
This RN attempted to call nurse to nurse report to [facility], no answer to phone calls, unable to leave a voice message on facility's voice mesage box.
== END 2024-04-03 19:44 | disposition home or self-care (01) ==
PROVIDERS: Emergency Medicine; Emergency Provider Emergency Medicine; PCP Family Medicine
DX: M25.551 Pain in right hip (principal); N39.0 Urinary tract infection, site not specified; Z91.81 History of falling; E11.9 Type 2 diabetes mellitus without complications; I10 Essential (primary) hypertension; F03.90 Unspecified dementia, unspecified severity, without behavioral disturbance, psychotic disturbance, mood disturbance, and anxiety
CPT/HCPCS: 36415; 70450; 72125; 72192; 80053; 81001; 84484; 85027; 85610; 87086; 96374; 99284; 99285; J0696

== ENCOUNTER → 2024-04-03 11:00 | Outpatient (BNV) | payer MEDICARE, SELFPAY | PROVIDERS: Emergency Provider Emergency Medicine; PCP Family Medicine; Visit Provider Radiology Diagnostic Radiology | DX: S06.6X0A Traumatic subarachnoid hemorrhage without loss of consciousness, initial encounter (principal) | CPT/HCPCS: 70450 ==

== ENCOUNTER 2024-04-05 20:45 | Emergency (ER) | payer MEDICARE, SELFPAY ==
--- NOTE | 2024-04-05 | ECG_ITS ---
Test Reason : FALL Blood Pressure : / mmHG Vent. Rate : 077 BPM Atrial Rate : 077 BPM P-R Int : 146 ms QRS Dur : 070 ms QT Int : 362 ms P-R-T Axes : 066 009 057 degrees QTc Int : 409 ms Normal sinus rhythm Normal ECG No previous ECGs available Referred By: Generic ED Physician Electronically Signed By:Onel Barahona
--- NOTE | ~2024-04-05 | XR_ITS ---
EXAMINATION: XR PELVIS CLINICAL INFORMATION: fall COMPARISON: None available. TECHNIQUE: AP view of the pelvis. FINDINGS: No pelvic fracture is seen. Severe degenerative changes are present in the hips, left greater than right. No definite hip fracture is seen on these limited views. Vascular calcifications are noted. XR/XR pelvis 1-2V IMPRESSION: No evidence of a pelvic fracture. Severe degenerative changes in the hips. Electronically signed by: Garth Alas MD 04/06/2024 12:12 AM [facility]
--- NOTE | ~2024-04-05 | CT_ITS ---
EXAMINATION: CT HEAD WITHOUT CONTRAST CT CERVICAL SPINE WITHOUT CONTRAST CLINICAL INFORMATION: Fall. Pain. COMPARISON: April 03, 2024 TECHNIQUE: Contiguous axial imaging was performed through the head and cervical spine without intravenous administration of contrast. Sagittal and coronal reformatted images also obtained. This CT examination was performed using dose optimization techniques as appropriate, variously including the following: *Automated exposure control *Adjustment of mA and/or kV according to patient size (this includes techniques or standardized protocols for targeted exams where dose is matched to indication/reason for exam; i.e. extremities or head) *Use of iterative reconstruction technique DLP: 897 mGy-cm FINDINGS: There is cerebral volume loss with prominence of the lateral and the third ventricles. The cortical sulci are widened appropriately. The fourth ventricle and basal cisterns are normally outlined. There is mild bilateral periventricular and central white matter diminished attenuation. There are bilateral old basal ganglia lacunar infarcts. There is no acute territorial defects, hemorrhage or midline shift. There is minimal residual right frontal subarachnoid hemorrhage. Calvarium/scalp: Intact. Maxillofacial sinuses and mastoids: There is a small sphenoid sinus opacity. The remaining visualized maxillofacial sinuses the sinuses and mastoids are clear. Cervical spine: The alignment is normal. There is moderate diffuse cervical degenerative change with loss of disc space, endplate change and posterior osteophytes associated with [id number] diffuse facet osteoarthritic hypertrophic change with multilevel mild spinal canal and multilevel mild to moderate neuroforaminal narrowing. The bony structures are osteopenic. No fracture seen. The soft tissues are unremarkable. The visualized upper lung pacheco are clear. A right thyroid goiter is again seen. CT/CT head/brain wo IV con IMPRESSION: 1. No acute intracranial process seen. Minimal residual right subarachnoid hemorrhage compared to prior. 2. Moderate cerebral volume loss with chronic small vessel ischemic changes. 3. No acute cervical spine abnormality seen. There is diffuse cervical spondylosis with multilevel mild spinal canal and mild to moderate neuroforaminal narrowing. Electronically signed by: Moises Powers MD 04/05/2024 11:54 PM [facility]
--- NOTE | ~2024-04-05 | CT_ITS ---
EXAMINATION: CT HEAD WITHOUT CONTRAST CT CERVICAL SPINE WITHOUT CONTRAST CLINICAL INFORMATION: Fall. Pain. COMPARISON: April 03, 2024 TECHNIQUE: Contiguous axial imaging was performed through the head and cervical spine without intravenous administration of contrast. Sagittal and coronal reformatted images also obtained. This CT examination was performed using dose optimization techniques as appropriate, variously including the following: *Automated exposure control *Adjustment of mA and/or kV according to patient size (this includes techniques or standardized protocols for targeted exams where dose is matched to indication/reason for exam; i.e. extremities or head) *Use of iterative reconstruction technique DLP: 897 mGy-cm FINDINGS: There is cerebral volume loss with prominence of the lateral and the third ventricles. The cortical sulci are widened appropriately. The fourth ventricle and basal cisterns are normally outlined. There is mild bilateral periventricular and central white matter diminished attenuation. There are bilateral old basal ganglia lacunar infarcts. There is no acute territorial defects, hemorrhage or midline shift. There is minimal residual right frontal subarachnoid hemorrhage. Calvarium/scalp: Intact. Maxillofacial sinuses and mastoids: There is a small sphenoid sinus opacity. The remaining visualized maxillofacial sinuses the sinuses and mastoids are clear. Cervical spine: The alignment is normal. There is moderate diffuse cervical degenerative change with loss of disc space, endplate change and posterior osteophytes associated with [id number] diffuse facet osteoarthritic hypertrophic change with multilevel mild spinal canal and multilevel mild to moderate neuroforaminal narrowing. The bony structures are osteopenic. No fracture seen. The soft tissues are unremarkable. The visualized upper lung pacheco are clear. A right thyroid goiter is again seen. CT/CT cervical spine wo IV con IMPRESSION: 1. No acute intracranial process seen. Minimal residual right subarachnoid hemorrhage compared to prior. 2. Moderate cerebral volume loss with chronic small vessel ischemic changes. 3. No acute cervical spine abnormality seen. There is diffuse cervical spondylosis with multilevel mild spinal canal and mild to moderate neuroforaminal narrowing. Electronically signed by: Moises Powers MD 04/05/2024 11:54 PM [facility]
[2024-04-05 20:52] VITALS: BP 118/64; BP 141/65; PULSE 79; PULSE 92; RESP 16; TEMP 36.4; O2SAT 96; BMI 21.7
[2024-04-05 22:00] LABS: Hemoglobin 12.4 g/dl (12.0-16.0); MANUAL DIFF FLAG SCAN; PLT CLUMP 1; Red Cell Distribution Width 13.1 % (11.0-16.0); SCAN SMEAR FLAG 1
[2024-04-05 22:00] LABS: Alanine Aminotransferase 8 U/L (0-31); Albumin Level 3.2 g/dL (3.5-5.0); Alkaline Phosphatase 77 U/L (39-117); Anion Gap 15 (12-20); Aspartate Amino Transferase 19 U/L (5-31); Bilirubin Total 0.4 mg/dL (0.0-1.0); Blood Urea Nitrogen 15 mg/dL (9-16); Calcium 8.7 mg/dL (8.4-10.2); Carbon Dioxide 23 mmol/L (22-29); Chloride 105 mmol/L (96-108); Creatinine Clr Calc Pharmacy 46.2; Estimated Glomerular Filt Rate > 60; Glucose Random 216 mg/dL (60-115); Potassium 4.8 mmol/L (3.3-5.1); Sodium 138 mmol/L (135-145); Total Protein 6.3 g/dL (6.5-8.0)
[2024-04-05 22:02] LABS: Basophils Percent Auto 0.4 % (0-2); Eosinophils Absolute Auto 0.2 X10*3/uL (0.0-0.4); Eosinophils Percent Auto 3.1 % (0-4); Hematocrit 38.3 % (37.0-47.0); Imm Gran Abs Auto 0.05 X10*3/uL (0.00-0.03); Lymphocytes Absolute Auto 0.9 X10*3/uL (1.2-4.9); Lymphocytes Percent Auto 17.9 % (20-40); Mean Corpuscular HGB Conc 32.4 g/dl (31.0-35.0); Mean Corpuscular Hemoglobin 29.9 pg (27.0-33.0); Mean Corpuscular Volume 92.3 fL (80.0-98.0); Mean Platelet Volume 12.4 fL (9.4-12.3); Monocytes Absolute Auto 0.7 X10*3/uL (0.1-1.2); Monocytes Percent Auto 13.6 % (2-11); Neutrophils Absolute Auto 3.3 x10*3/uL (2.0-8.3); Red Blood Count 4.15 X10*6/uL (4.20-5.50)
--- NOTE | 2024-04-05 22:15 | ED.FALL ---
HPI - Fall General Chief Complaint: Fall Stated Complaint: unwit fall from snf, +thinners, +c-collar Time Seen by Provider: 04/05/24 21:56 Source: patient Mode of arrival: ambulatory Limitations: no limitations History of Present Illness ED Provider: HPI Narrative: Patient from [facility] comes here for unwitnessed fall. This is patient's 3rd visit this month patient came here for the similar fall. Patient has had subarachnoid bleed on 03/12 from the fall. According to nursing staff patient was behaving talking normally not supposed to get up or walk independently but she decided to get up from the bed off her own and fell which was unwitnessed patient remembers the fall saying that she hit her back does have pain in both hips no loss of consciousness no seizures Related Data Previous Rx's ?Medication ?Instructions ?Recorded cefuroxime axetil 250 mg tablet 250 mg PO BID 7 days #14 tabs 04/03/24 Allergies Allergy/AdvReac Type Severity Reaction Status Date / Time No Known Allergies Allergy Verified 04/05/24 20:55 Review of Systems Review of Systems: Yes all other systems are reviewed and are negative [facility] Past Medical History Medical History Diabetes Hypertension Dementia Social History Social History Unable to assess alcohol history related to: Unable to respond and Unknown Advance Directives: Yes Advance Directives on File: Yes Advance Directives Date on File: 03/13/24 Do you have a plan to hurt others: No Plan Physical Exam Vital Signs: Vital Signs: Last Vital Signs Temp 98.3 F 04/06/24 01:49 Pulse 79 04/06/24 01:49 Resp 16 04/06/24 01:49 BP 134/56 L 04/06/24 01:49 Pulse Ox 97 04/06/24 01:49 O2 Del Method Room Air 04/06/24 01:49 BMI result Body Mass Index 21.7 Appearance: Alert. Oriented X2. No acute distress. Eyes: PERRLA, No Nystagmus ENT: Pharynx normal. Oral Mucosa moist atraumatic normocephalic Neck: Normal inspection. Neck supple. No midline tenderness CVS: Normal heart rate and rhythm. Pulses normal. Respiratory: No respiratory distress. Equal air entry bilateral, no wheezing/rales/rhonchi Abdomen: Soft and nontender. Bowel sounds are present, no mass palpable, no CVA tenderness Skin: Skin warm and dry. Normal skin color. Normal skin turgor. Extremities: No lower extremity edema. No calf tenderness bilateral hip tenderness no deformity Neuro: Oriented X 3. No motor deficit. No sensory deficit.No cerebellar signs , cranial nerves II-XII intact Medical Decision Making Medical Decision Making [facility] Narrative: Patient has frequent falls not supposed to ambulate but tries to ambulate without informing the nursing staff CT scan of the head C-spine and pelvic x-ray negative will discharge patient back to [facility] staff advised to have bed alarm close watch Lab Data [facility] Lab Attestation statement: I reviewed the patient's lab results. 04/05/24 21:38 04/05/24 21:33 Labs: Lab Results 04/05/24 04/05/24 04/05/24 Range/Units 21:23 21:33 21:38 WBC Cancelled 5.1 RBC Cancelled 4.15 L Hgb Cancelled 12.4 Hct Cancelled 38.3 MCV Cancelled 92.3 MCH Cancelled 29.9 MCHC Cancelled 32.4 RDW Cancelled 13.1 Plt Count Cancelled 135 L MPV Cancelled 12.4 H Immature Gran % (Auto) Cancelled 1.0 H Neut % (Auto) Cancelled 64.0 Lymph % (Auto) Cancelled 17.9 L [place] % (Auto) Cancelled 13.6 H Eos % (Auto) Cancelled 3.1 Baso % (Auto) Cancelled 0.4 Lymph # (Auto) Cancelled 0.9 L [place] # (Auto) Cancelled 0.7 Eos # (Auto) Cancelled 0.2 Baso # (Auto) Cancelled 0.0 Abs Immat Gran (auto) Cancelled 0.05 H Absolute Neuts (auto) Cancelled 3.3 Absolute Nucleated RBC Cancelled 0.000 Nucleated RBC % (auto) Cancelled 0.0 Smear Tech's Comments VERIFIED Hold Purple Top SEE NOTE Sodium 138 (135-145) mmol/L Potassium 4.8 (3.3-5.1) mmol/L Chloride 105 (96-108) mmol/L Carbon Dioxide 23 (22-29) mmol/L Anion Gap 15 (12-20) BUN 15 (9-16) mg/dL Creatinine 0.77 (0.5-1.4) mg/dL Estim Creat Clear Calc 46.2 Estimated GFR > 60 Random Glucose 216 H (60-115) mg/dL Calcium 8.7 (8.4-10.2) mg/dL Total Bilirubin 0.4 (0.0-1.0) mg/dL AST 19 (5-31) U/L ALT 8 (0-31) U/L Alkaline Phosphatase 77 (39-117) U/L Total Creatine Kinase 28 (26-140) U/L Troponin I High Sens < 2.7 D (<3.5-17.0) ng/L Total Protein 6.3 L (6.5-8.0) g/dL Albumin 3.2 L (3.5-5.0) g/dL Independent Interpretation I performed an independent interpretation of an: EKG, Plain X-Ray and CT Scan Interpretation: NAD, normal sinus rhythm heart rate 77 beats per minute normal intervals normal axis no acute ST-T changes no acute ischemia Radiology Impression Discussion of test interpretation with radiology: I have reviewed the radiologist's reading. Discharge Plan Discharge Clinical Impression: Fall Patient Disposition: Xfer LTC Transfer Details: Care and cautions as advised, CT scan of the head C-spine and pelvic x-ray negative for any acute Instructions: Fall Prevention for Older Adults (ED) Prescriptions: No Action cefuroxime axetil 250 mg tablet 250 mg PO BID 7 Days Qty: 14 0RF Print Language: [place]
[2024-04-05 22:21] LABS: Platelet Count 135 X10*3/uL (160-400); SLIDE REVIEW VERIFIED; White Blood Count 5.1 X10*3/uL (4.8-10.8)
[2024-04-05 22:58] VITALS: BP 123/55; PULSE 80; RESP 20; TEMP 36.9; O2SAT 100
[2024-04-05 22:59] LABS: Troponin-I High Sensitivity < 2.7 ng/L (<3.5-17.0)
[2024-04-06 01:49] VITALS: BP 134/56; PULSE 79; RESP 16; TEMP 36.8; O2SAT 97
--- NOTE | 2024-04-06 02:15 | PC.NURSE ---
report given to Garth MCKNIGHT at [facility], awaiting ems transfer.
[2024-04-06 05:53] VITALS: BP 141/45; PULSE 77; RESP 14; TEMP 36.8; O2SAT 95
== END 2024-04-06 05:54 ==
PROVIDERS: Emergency Provider Internal Medicine
DX: S39.92XA Unspecified injury of lower back, initial encounter (principal); S79.912A Unspecified injury of left hip, initial encounter; S79.911A Unspecified injury of right hip, initial encounter; R51.9 Headache, unspecified; M54.2 Cervicalgia; W06.XXXA Fall from bed, initial encounter; Z91.81 History of falling; Y93.89 Activity, other specified; Y92.230 Patient room in hospital as the place of occurrence of the external cause; Y99.8 Other external cause status
CPT/HCPCS: 36415; 70450; 72125; 72170; 80053; 82550; 84484; 85025; 93005; 99284

== ENCOUNTER → 2024-04-05 21:04 | Outpatient (BNV) | payer MEDICARE, SELFPAY | PROVIDERS: Emergency Provider Internal Medicine; Visit Provider Internal Medicine Cardiovascular Disease | DX: R55 Syncope and collapse (principal) | CPT/HCPCS: 93010 ==